=== PATIENT | female | born 2000 | race Caucasian/White ===

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

== ENCOUNTER 2022-04-24 11:26 | Emergency (ER) | payer MEDICAID ==
[~2022-04-24] VITALS: Ht 152.4 cm; Wt 61.2 kg
[~2022-04-24 11:26] MED LIST: CABE0.5T; NITR-65 PO; ONDA4TAB11 PO
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
[2022-04-24] MEDS ORDERED: NS IV 1000 ML 1,000 ML IV SCH (12:00)
[2022-04-24] MEDS ORDERED: ONDANSETRON 4 MG/2 ML (SDV) Z0FRAN IVP ONE (12:00)
[2022-04-24 12:08] LABS: BASOPHILS % (AUTO) 0 % (0-10); EOSINOPHILS % (AUTO) 0 % (0-10); HEMATOCRIT 36 % (35-52); LYMPHOCYTES # (AUTO) 2.1 10^3/uL (1.0-4.0); LYMPHOCYTES % (AUTO) 15 % (12-44); MEAN CORPUSCULAR HEMOGLOBIN 30 pg (25-34); MEAN CORPUSCULAR HGB CONC 36 g/dL (32-36); MEAN CORPUSCULAR VOLUME 85 fL (80-99); MEAN PLATELET VOLUME 10.9 fL (9.0-12.2); MONOCYTES # (AUTO) 0.3 10^3/uL (0.0-1.0); MONOCYTES % (AUTO) 2 % (0-12); NEUTROPHILS # (AUTO) 11.7 10^3/uL (1.8-7.8); NEUTROPHILS % (AUTO) 83 % (42-75); PLATELET COUNT 320 10^3/uL (130-400); WHITE BLOOD COUNT 14.2 10^3/uL (4.3-11.0)
[2022-04-24 12:15] LABS: ALBUMIN 4.8 GM/DL (3.2-4.5); CHLORIDE 102 MMOL/L (98-107); POTASSIUM 3.6 MMOL/L (3.6-5.0); SODIUM 137 MMOL/L (135-145)
[2022-04-24 12:16] LABS: CALCIUM 10.2 MG/DL (8.5-10.1)
[2022-04-24 12:17] LABS: GLUCOSE 107 MG/DL (70-105); TOTAL PROTEIN 8.6 GM/DL (6.4-8.2)
[2022-04-24 12:18] LABS: CARBON DIOXIDE 23 MMOL/L (21-32)
[2022-04-24 12:19] LABS: BILIRUBIN,TOTAL 0.3 MG/DL (0.1-1.0)
[2022-04-24 12:20] LABS: ALKALINE PHOSPHATASE 90 U/L (40-136)
[2022-04-24 12:21] LABS: GFR ESTIMATED 108
[2022-04-24 12:22] LABS: BUN/CREATININE RATIO 14
[2022-04-24 12:24] LABS: ALANINE AMINOTRANSFERASE 32 U/L (0-55); LIPASE 24 U/L (8-78)
[2022-04-24 12:31] LABS: BAND NEUTROPHILS 2 %; NEUTROPHILS % (MANUAL) 81 %
[2022-04-24 12:32] LABS: BASOPHILS % (MANUAL) 1 %; EOSINOPHILS % (MANUAL) 0 %; LYMPHOCYTES % (MANUAL) 13 %; MONOCYTES % (MANUAL) 3 %; RBC MORPH NORMAL
[2022-04-24 12:52] LABS: BILIRUBIN,URINE NEGATIVE (NEGATIVE); CLARITY,URINE CLEAR; COLOR,URINE YELLOW; GLUCOSE, URINE (UA) NEGATIVE (NEGATIVE); KETONES,URINE NEGATIVE (NEGATIVE); LEUKOCYTE ESTERASE ,URINE NEGATIVE (NEGATIVE); NITRITE,URINE NEGATIVE (NEGATIVE); PROTEIN,URINE 1+ (NEGATIVE)
[2022-04-24 12:59] LABS: HCG,QUALITATIVE URINE NEGATIVE (NEGATIVE)
[2022-04-24 13:08] LABS: BACTERIA,URINE TRACE /HPF; WBC,URINE RARE /HPF
[2022-04-24 13:09] LABS: AMPHETAMINE SCREEN, URINE NEGATIVE (NEGATIVE); BARBITURATE SCREEN URINE NEGATIVE (NEGATIVE); BENZODIAZEPINES SCREEN URINE NEGATIVE (NEGATIVE); CANNABINOID SCREEN, URINE NEGATIVE (NEGATIVE); COCAINE SCREEN URINE NEGATIVE (NEGATIVE); METHADONE STAT NEGATIVE (NEGATIVE); OPIATE SCREEN URINE NEGATIVE (NEGATIVE); OXYCODONE STAT NEGATIVE (NEGATIVE); PROPOXYPHENE STAT NEGATIVE (NEGATIVE); TRICYCLIC ANTIDEPRESSANTS SCRE NEGATIVE (NEGATIVE)
[2022-04-24] MEDS ORDERED: HYOS0.1283 SL (13:17)
[2022-04-24] MEDS ORDERED: ONDA4TAB11 SL (13:17)
[2022-04-24 13:29] VITALS: BP 113/67
== END 2022-04-24 13:29 | disposition home or self-care (01) ==
LOC: EDUNIT# 11:26 → ER 11:29
DX: R11.2 Nausea with vomiting, unspecified (principal); R19.7 Diarrhea, unspecified; R10.84 Generalized abdominal pain; D72.829 Elevated white blood cell count, unspecified; R00.0 Tachycardia, unspecified
CPT/HCPCS: 36415; 80053; 80306; 81000; 83690; 84703; 85007; 85027